=== PATIENT | male | born 1975 | race Two or more races ===

== ENCOUNTER 2017-03-19 21:56 | Emergency (ER) | payer BC ==
[2017-03-19 22:16] VITALS: BP 122/74; PULSE 67; TEMP 97.6; BMI 22.0
--- NOTE | 2017-03-19 23:50 | PDOC ---
History of Present Illness - General History Source: Patient, Old Records Exam Limitations: No Limitations - History of Present Illness Initial Comments: 03/19/17 23:52 The patient is a 41 year old male with no significant past medical history, who presents to the emergency department with chest pain today. The patient states that he was stretching at work when he felt a pop in his midsternal chest. The patient states that his pain feels more like tightness now and notes that he did not take any medications at home to treat his pain. He denies any syncope or fall. The patient denies fever, chills, and sweats. The patient denies nausea, vomiting, and diarrhea. The patient denies cough, and shortness of breath. <Dc Monae - Last Filed: 03/19/17 23:52> <Margarita Pace - Last Filed: 03/20/17 00:01> - General Chief Complaint: Muscle Cramping Stated Complaint: CHEST PAIN Time Seen by Provider: 03/19/17 23:07 Past History <Dc Monae - Last Filed: 03/19/17 23:52> - Past Medical History Thyroid Disease: No - Immunization History Immunization Up to Date: No - Psycho/Social/Smoking Cessation Hx Anxiety: No Suicidal Ideation: No Smoking History: Never smoked Have you smoked in the past 12 months: No Information on smoking cessation initiated: No Substance Use Type: Alcohol <Margarita Pace - Last Filed: 03/20/17 00:01> - Past Medical History Allergies/Adverse Reactions: Allergies Allergy/AdvReac Type Severity Reaction Status Date / Time No Known Allergies Allergy Verified 03/19/17 22:16 Home Medications: Ambulatory Orders NK [No Known Home Medication] 03/19/17 Review of Systems - Review of Systems Able to Perform ROS?: Yes Comments:: 03/19/17 23:52 GENERAL/CONSTITUTIONAL: No fever or chills. No weakness. HEAD, EYES, EARS, NOSE AND THROAT: No change in vision. No ear pain or discharge. No sore throat. GASTROINTESTINAL: No nausea, vomiting, diarrhea or constipation. GENITOURINARY: No dysuria, frequency, or change in urination. CARDIOVASCULAR: No shortness of breath. RESPIRATORY: No cough, wheezing, or hemoptysis. MUSCULOSKELETAL: (+) Chest pain. No neck or back pain. SKIN: No rash NEUROLOGIC: No headache, vertigo, loss of consciousness, or change in strength/ sensation. ENDOCRINE: No increased thirst. No abnormal weight change. HEMATOLOGIC/LYMPHATIC: No anemia, easy bleeding, or history of blood clots. ALLERGIC/IMMUNOLOGIC: No hives or skin allergy. <Dc Monae - Last Filed: 03/19/17 23:52> *Physical Exam - Vital Signs Last Vital Signs Temp Pulse Resp BP Pulse Ox 97.6 F 67 19 122/74 98 03/19/17 22:13 03/19/17 22:13 03/19/17 22:13 03/19/17 22:13 03/19/17 22:13 - Physical Exam Comments: 03/19/17 23:52 GENERAL: Awake, alert, and fully oriented, in no acute distress HEAD: No signs of trauma NECK: Normal ROM, supple, no lymphadenopathy, JVD, or masses LUNGS: Breath sounds equal, clear to auscultation bilaterally. No wheezes, and no crackles CHEST/HEART: (+) Left sternal rib junction is tender no crepitus no step off. Regular rate and rhythm, normal S1 and S2, no murmurs, rubs or gallops ABDOMEN: Soft, nontender, normoactive bowel sounds. No guarding, no rebound. No masses EXTREMITIES: Normal range of motion, no edema. No clubbing or cyanosis. No cords, erythema, or tenderness NEUROLOGICAL: Normal speech <Dc Monae - Last Filed: 03/19/17 23:52> - Vital Signs Last Vital Signs Temp Pulse Resp BP Pulse Ox 97.6 F 67 19 122/74 98 03/19/17 22:13 03/19/17 22:13 03/19/17 22:13 03/19/17 22:13 03/19/17 22:13 <Margarita Pace - Last Filed: 03/20/17 00:01> ED Treatment Course - RADIOLOGY Radiology Studies Ordered: Category Date Time Status CHEST PA & LAT [RAD] Stat Radiology 03/19/17 23:14 Taken <Margarita Pace - Last Filed: 03/20/17 00:01> Medical Decision Making - Medical Decision Making 03/19/17 23:48 41 yo male with no pmhx here with c/o chest wall pain. states was stretching during work today and felt pop in chest. had severe pain, which lasted few minutes then resolved. this evening was lying in bed and tried to sit up had similar pain and feeling. no n/v no sob. no h/o fall or other injury. on exam awake alert lungs clear. chest wall with costo/sternal junction ttp on left side. no palp crepitus or step off. no rib or clavicular deformity. skin warm and dry no rash. heart RRR no mrg. abd soft NT. ext wwp . nuero alert and oriented x 3. plan: likley costochondral sprain.xray r/o fx. pain control dc home. 03/20/17 00:01 cxr negative dc home. pt declined pain medication in ed. <Margarita Pace - Last Filed: 03/20/17 00:01> *DC/Admit/Observation/Transfer - Attestations Scribe Attestion: 03/19/17 23:53 Documentation prepared by Dc Monae, acting as medical biller/coder for Margarita Pace MD. <Dc Monae - Last Filed: 03/19/17 23:52> - Discharge Dispostion Admit: No <Margarita Pace - Last Filed: 03/20/17 00:01> Diagnosis at time of Disposition: Sprain of chest wall - Discharge Dispostion Disposition: HOME Condition at time of disposition: Good - Referrals Referrals: STAFF,NOT ON [Primary Care Provider] - - Patient Instructions Printed Discharge Instructions: Costochondritis Additional Instructions: take ibuprofen 600 mg every 8 hours as needed for pain. return for any shortness of breath or any concerns. you may be sore for up to one week. avoid heavy lifting or strenuous activity. follow up with your doctor as needed. your xray today was negative. no broken ribs or signs of infection.
--- NOTE | 2017-03-20 07:56 | PDOC ---
*Physical Exam - Vital Signs Last Vital Signs Temp Pulse Resp BP Pulse Ox 97.6 F 67 19 122/74 98 03/19/17 22:13 03/19/17 22:13 03/19/17 22:13 03/19/17 22:13 03/19/17 22:13 Medical Decision Making - Medical Decision Making 03/20/17 07:55 Received phone call from Dr. Zavaleta regarding chest xray. On lateral view, appears to be a retrosternal nodule. Patient called at his home phone number but did not cone picker. I left a voicemail requesting the patient to call me back directly regarding the new xray rindings. *DC/Admit/Observation/Transfer Diagnosis at time of Disposition: Sprain of chest wall - Discharge Dispostion Disposition: HOME Condition at time of disposition: Good - Referrals Referrals: STAFF,NOT ON [Primary Care Provider] - - Patient Instructions Printed Discharge Instructions: Costochondritis Additional Instructions: take ibuprofen 600 mg every 8 hours as needed for pain. return for any shortness of breath or any concerns. you may be sore for up to one week. avoid heavy lifting or strenuous activity. follow up with your doctor as needed. your xray today was negative. no broken ribs or signs of infection. - Post Discharge Activity
--- NOTE | 2017-03-24 10:24 | EKG ---
Test Reason : Blood Pressure : / mmHG Vent. Rate : 064 BPM Atrial Rate : 064 BPM P-R Int : 144 ms QRS Dur : 088 ms QT Int : 374 ms P-R-T Axes : 037 065 062 degrees QTc Int : 385 ms NORMAL SINUS RHYTHM EARLY REPOLARIZATION NORMAL ECG NO PREVIOUS ECGS AVAILABLE Confirmed by DIANE GIL, ARYA ([id number]) on 03/24/2017 10:23:52 AM Referred By: Confirmed By:ARYA CONTRERAS MD
== END 2017-03-20 00:11 | disposition home or self-care (01) ==
LOC: JER 21:56 → JERFT 21:56 → SUPCPDRO 21:56 → JER 03-20 00:11
DX: S29.011A Strain of muscle and tendon of front wall of thorax, initial encounter (principal); M94.0 Chondrocostal junction syndrome [Tietze]; S21.109A Unspecified open wound of unspecified front wall of thorax without penetration into thoracic cavity, initial encounter; X50.0XXA Overexertion from strenuous movement or load, initial encounter; Y93.89 Activity, other specified; Y92.89 Other specified places as the place of occurrence of the external cause
CPT/HCPCS: 71020-TC; 93005; 93010; 99283-25